=== PATIENT | female | born 1945 | race Caucasian/White ===

== ENCOUNTER 2021-08-13 10:51 | Outpatient (RCR) | payer MEDICARE, SELFPAY ==
--- NOTE | 2021-08-13 11:59 | PTOPEVAL ---
Thank you for referring KYREE HICKS to [facility].? The patient is scheduled to be seen for therapy? ____x/week for ___ weeks. Please review, sign, date and return this plan of care JUNIOR. I agree with and certify that the following plan of care is medically necessary. Referring Physician Date Admitting Provider: Attending Provider: Julius Matta, MD Referring Provider: *PT Outpatient Evaluation Start: 08/13/21 10:53 Freq: Status: Active Protocol: Document 08/13/21 10:59 ACR (Rec: 08/13/21 11:59 ACR [id number]) Therapy Assessment Status Assessment Status Assessment Status Evaluation Evaluation Information Problem Diagnosis low back pain Onset 08/05/21 Subjective Information Patient reports that she had Query Text:As Reported By Patient/ back surgery in 2017 (L3-L4-L5 Family laminectomy, L4-L5 fusion) and recently she starting having a problem with in the R lower back. She states that when it tightens up she thinks it is touching a nerve and its an excruciating pain. Patient states that difficult activities are bending over to pick something up, sitting, and walking/standing for a period of time. She states that laying down make the pain go away. Patient states she is taking pain medication for this. She states she has some burning and tingling on the R anterior thigh. Patient states her goal for therapy is to decrease the pain. Prior Level of Function Activity Level (Last 3 Months) Occupation retired Hand Dominance Right Activity of Daily Living Ability Independent Indoor/Home Mobility Independent Community Mobility Independent Stairs Ability Independent Functional Cognition (Planning, Shopping Independent , Taking Medications) Cooking Yes Cleaning Yes Laundry Yes Shopping Yes Driving Yes Pain Assessment Timing of Pain Assessment Timing of Pain Assessment Assessment Pain Scale Pain Scale Used Numeric (1 - 10) Self Report Pain Assessment Right Lower Back Reported Pain Level 8 Low
--- NOTE | 2021-09-01 10:33 | PTOPEVAL ---
Thank you for referring KYREE HICKS to [facility].? The patient is scheduled to be seen for therapy? ____x/week for ___ weeks. Please review, sign, date and return this plan of care JUNIOR. I agree with and certify that the following plan of care is medically necessary. Referring Physician Date Admitting Provider: Attending Provider: Julius Matta, Referring Provider: *PT Outpatient Evaluation Start: 08/13/21 10:53 Freq: Status: Active Protocol: Document 09/01/21 09:35 ACR (Rec: 09/01/21 10:26 ACR [email or web address]) Therapy Assessment Status Assessment Status Assessment Status Progress Evaluation Information Problem Diagnosis low back pain Onset 08/05/21 Subjective Information Patient reports since Query Text:As Reported By Patient/ beginning therapy she feels a Family lot better, but she continues to have the sharp pain, but not as often. She states that she is able to do more than before but still is unable to walk for a long period of time . The patient would like to be discharged at this time due to her high copay and feeling a lot better. Pain Assessment Timing of Pain Assessment Timing of Pain Assessment Assessment Pain Scale Pain Scale Used Numeric (1 - 10) Self Report Pain Assessment Right Lower Back Reported Pain Level 3 Greatest Pain Intensity 6 Pain Score Pain Score 3: Self Report Interventions Used Interventions Used By Clinicians Activity or ADL's,Exercise Cervical and Lumbar ROM Lumbar ROM Lumbar ROM 75% of Normal Lower Extremity Muscle Strength Testing Hip Strength Right Hip Flexion Strength 4+ Good + Left Hip Flexion Strength 4+ Good + Knee Strength Right Knee Flexion Strength 4 Good Knee Extension Strength 4 Good Left Knee Flexion Strength 5 Normal Knee Extension Strength 4+ Good + Muscle Length Testing Muscle Length Testing Piriformis w/Hip Flexion >90 Degrees (R) Mild Tightness,(L) Mild Tightness Left Hamstring Length 10 Query Text:(90 - 90 Position) Right Hamstring Length 10 Query Text:(90 - 90 Position) Palpation Assessment Palpation Palpation Patient continues to be tender to palpation along the R PSIS and the R lumbar paraspinals Special Test-Spine Lumbar Spine Special Tests Crossed Straight Leg Raise Test Negat
== END 2021-09-01 23:59 | disposition home or self-care (01) ==
LOC: CHSPT 10:51
PROVIDERS: Visit Provider Family Medicine
DX: M54.5 Low back pain (principal)
CPT/HCPCS: 97014; 97110; 97161; 97530; G0283